=== PATIENT | male | born 1970 | race Caucasian/White ===

== ENCOUNTER → 2019-07-10 | Outpatient (CLI) | payer BC | LOC: HYPER 11:20 | DX: T81.31XA Disruption of external operation (surgical) wound, not elsewhere classified, initial encounter (principal); L03.115 Cellulitis of right lower limb; L03.116 Cellulitis of left lower limb; L81.7 Pigmented purpuric dermatosis; D48.5 Neoplasm of uncertain behavior of skin; E11.9 Type 2 diabetes mellitus without complications; G47.30 Sleep apnea, unspecified; G89.4 Chronic pain syndrome; I89.0 Lymphedema, not elsewhere classified; I87.2 Venous insufficiency (chronic) (peripheral); R21 Rash and other nonspecific skin eruption; R60.0 Localized edema; F32.9 Major depressive disorder, single episode, unspecified; Z79.84 Long term (current) use of oral hypoglycemic drugs; Z79.4 Long term (current) use of insulin; Y92.89 Other specified places as the place of occurrence of the external cause; Y83.8 Other surgical procedures as the cause of abnormal reaction of the patient, or of later complication, without mention of misadventure at the time of the procedure ==

== ENCOUNTER → 2019-07-30 | Outpatient (CLI) | payer OTHER | LOC: HYPER 08:00 | DX: T81.31XD Disruption of external operation (surgical) wound, not elsewhere classified, subsequent encounter (principal); D48.5 Neoplasm of uncertain behavior of skin; L81.7 Pigmented purpuric dermatosis; I87.2 Venous insufficiency (chronic) (peripheral); L03.116 Cellulitis of left lower limb; L03.115 Cellulitis of right lower limb; G47.30 Sleep apnea, unspecified; G89.4 Chronic pain syndrome; R21 Rash and other nonspecific skin eruption; F32.9 Major depressive disorder, single episode, unspecified; Z79.84 Long term (current) use of oral hypoglycemic drugs; Z79.4 Long term (current) use of insulin; Y83.8 Other surgical procedures as the cause of abnormal reaction of the patient, or of later complication, without mention of misadventure at the time of the procedure ==